=== PATIENT | male | born 1985 | race Caucasian/White ===

== ENCOUNTER 2016-08-02 19:37 | Emergency (ER) | payer OTHER ==
[2016-08-02] MEDS ORDERED: ACETAMINOPHEN 325 MG TABLET PO ONE (20:24)
--- NOTE | 2016-08-02 20:25 | ER Document Report ---
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 Patient denies any injury. Patient denies any paresthesia. Patient denies any urinary symptoms. hx: T4 fracture I have greeted and performed a rapid initial assessment of this patient. A comprehensive ED assessment and evaluation of the patient, analysis of test results and completion of the medical decision making process will be conducted by additional ED providers. TRAVEL OUTSIDE OF THE [place] IN LAST 30 DAYS: No - Related Data Allergies/Adverse Reactions: Penicillins Allergy (Unknown, Verified 08/02/16 20:22) Past Medical History - Immunizations Hx Diphtheria, Pertussis, Tetanus Vaccination: Yes Physical Exam - Back Back: Tender - Lower lumbar tenderness
[2016-08-03] MEDS ORDERED: HYDROCODONE/ACETAMINOPHEN 5-325 MG 6 TAB/DSPK PO PRN (00:37)
[2016-08-03] MEDS ORDERED: NAPROXEN 250 MG TABLET PO ONE (00:37)
[2016-08-03] MEDS ORDERED: LIDOCAINE 5% (700 MG) TRANSDERMAL ADH..PATCH TP ONE (00:37)
[2016-08-03] MEDS ORDERED: OXYCODONE HCL IR 5 MG TABLET PO ONE (00:38)
--- NOTE | 2016-08-03 00:39 | ER Document Report ---
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 States that the symptoms were gradual in onset and have gotten worse since they started. 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 He's been trying ibuprofen at home with minimal improvement of his pain. States any attempt at moving the back or walking worsens the pain. Denies any bowel or bladder incontinence. No urinary retention. He has not had any fever. No weakness or numbness. States that pain does intermittently shoot down his right leg if he moves his back certain way. Denies any history of similar symptoms in the past. He has not seen his primary care doctor regarding today' s concerns. TRAVEL OUTSIDE OF THE [place] IN LAST 30 DAYS: No - Related Data Allergies/Adverse Reactions: Penicillins Allergy (Unknown, Verified 08/02/16 20:22) Past Medical History - General Information source: Patient - Social History Smoking Status: Never Smoker Chew tobacco use (# tins/day): Yes Frequency of alcohol use: Occasional Drug Abuse: None Lives with: Spouse/Significant other Family History: Reviewed & Not Pertinent Renal/ Medical History: Denies: Hx Peritoneal Dialysis - Immunizations Hx Diphtheria, Pertussis, Tetanus Vaccination: Yes Review of Systems - Review of Systems Notes: Constitutional: Negative for fever. HENT: Negative for sore throat. Eyes: Negative for visual changes. Cardiovascular: Negative for chest pain. Respiratory: Negative for shortness of breath. Gastrointestinal: Negative for abdominal pain, vomiting or diarrhea. Genitourinary: Negative for dysuria. Musculoskeletal: Positive for back pain. Skin: Negative for rash. Neurological: Negative for headaches, weakness or numbness. 10 point ROS negative except as marked above and in HPI. Physical Exam - Vital signs Vitals: Temp Pulse Resp BP Pulse Ox 97.6 F 102 H 14 134/79 H 100 08/02/16 20:25 08/02/16 20:25 08/02/16 20:25 08/02/16 20:25 08/02/16 20:25 Interpretation: Normal Notes: PHYSICAL EXAMINATION: GENERAL: Sitting straight up in bed, appears uncomfortable but in no acute distress HEAD: Atraumatic, normocephalic. EYES: Pupils equal round and reactive to light, extraocular movements intact, sclera anicteric, conjunctiva are normal. ENT: nares patent, oropharynx clear without exudates. Moist mucous membranes. NECK: Normal range of motion, supple without lymphadenopathy LUNGS: Breath sounds clear to auscultation bilaterally and equal. No wheezes rales or rhonchi. HEART: Regular rate and rhythm without murmurs ABDOMEN: Soft, nontender, normoactive bowel sounds. No guarding, no rebound. No masses appreciated. Back: No midline spinal tenderness, step-offs or deformities EXTREMITIES: Normal range of motion, no pitting or edema. No cyanosis. Negative straight leg raise test bilaterally NEUROLOGICAL: 5 out of 5 strength both distally and proximally bilateral lower extremities. 2+ patellar reflexes bilaterally. No clonus. Sensation grossly intact in the bilateral lower extremities. Patient is able to ambulate without difficulty. PSYCH: Normal mood, normal affect. SKIN: Warm, Dry, normal turgor, no rashes or lesions noted. Course - Re-evaluation Re-evalutation: 08/03/16 00:38 Presentation of a well appearing patient complaining of acute back pain. No rapid progression of symptoms, systemic symptoms including fevers, chills, weight loss, history of recent bacterial infection, bilateral symptoms, numbness , weakness, difficulty walking, urinary retention or bowel incontinence, personal history of cancer, immunosuppression, diabetes, known AAA, or history of IV drug use. Exam is without point tenderness over vertebral bodies, pulsatile abdominal mass, and patient has symmetric and intact lower extremity strength, sensation, and reflexes without clonus. 2+ symmetric medial malleolar and dorsalis pedis pulses Based on history and physical, I have a very low suspicion of a concerning etiology of pain including epidural compression syndrome, spinal infection, transverse myelitis, malignancy, abdominal aortic aneurysm, renal colic, acute lower extremity claudication, neurogenic claudication, ankylosing spondylitis, or other intra-abdominal process. Due to absence of concerning risk factors in history and physical as well as absence of rapidly progressive, severe, or bilateral symptoms, will defer imaging at this point. Plan to manage conservatively with outpatient analgesia, analgesia, and physical therapy. - Acetaminophen 650 q 4 + ibuprofen 600 q 6 - Continue normal daily activities as tolerated by pain - Provide with standard musculoskeletal back pain exercise instructions - Instruct to follow up with primary care provider if symptoms not improving - Provide careful return precautions and concerning symptoms to watch for. - Vital Signs Vital signs: Temp Pulse Resp BP Pulse Ox 97.9 F 90 16 132/88 H 99 08/03/16 01:00 08/03/16 01:00 08/03/16 01:00 08/03/16 01:00 08/03/16 01:00 Discharge - Discharge Clinical Impression: Back pain Qualifiers: Back pain location: low back pain Chronicity: acute Back pain laterality: unspecified Sciatica presence: without sciatica Qualified Code(s): M54.5 - Low back pain Condition: Good Disposition: HOME, SELF-CARE Additional Instructions: You have been seen in the Emergency Department (ED) today for back pain. Your workup and exam have not shown any acute abnormalities and you are likely suffering from muscle strain or possible problems with your discs, but there is no treatment that will fix your symptoms at this time. Take ibuprofen 600mg every 6 hours. You should also purchase a local lidocaine cream such as "aspercreme with lidocaine" and use per bottle instructions to the affected area. Apply heat to the area as often as you are able. Continue to keep active and avoid prolonged periods of bed rest. Please follow up with your doctor as soon as possible regarding today's ED visit and your back pain. Return to the ED for worsening back pain, fever, weakness or numbness of either leg, or if you develop either (1) an inability to urinate or have bowel movements, or (2) loss of your ability to control your bathroom functions (if you start having "accidents"), or if you develop other new symptoms that concern you.concern you. Prescriptions: Oxycodone HCl/Acetaminophen [Percocet 5-325 mg Tablet] 1 - 2 tab PO Q4H PRN #15 tablet PRN Reason: Forms: Return to Work
[2016-08-03 01:19] VITALS: BP 132/88
== END 2016-08-03 01:19 | disposition home or self-care (01) ==
LOC: ER 19:37
DX: M54.5 Low back pain (principal); X50.0XXA Overexertion from strenuous movement or load, initial encounter; Y99.0 Civilian activity done for income or pay; Z88.0 Allergy status to penicillin; Z72.0 Tobacco use
CPT/HCPCS: 99283

== ENCOUNTER 2017-02-01 21:45 | Emergency (ER) | payer SELFPAY ==
[2017-02-01] MEDS ORDERED: KETOROLAC TROMETHAMINE INJ/PF 30 MG/1 ML SDV IV ONE (21:51)
[2017-02-01] MEDS ORDERED: LIDOCAINE 5% (700 MG) TRANSDERMAL ADH..PATCH TP ONE (21:51)
[2017-02-01] MEDS ORDERED: FENTANYL CITRATE INJ/PF 100 MCG/2 ML AMPUL IV ONE (21:52)
[2017-02-01 21:54] VITALS: BP 113/70
--- NOTE | 2017-02-01 21:56 | ER Document Report ---
ED General - General Stated Complaint: RIB PAIN Time Seen by Provider: 02/01/17 21:51 Notes: Patient is a 31-year-old male without past medical history who presents with acute onset of left lower rib pain after he actually ran into a gutter while playing soccer with friends. Reports an immediate onset of severe, stabbing pain to the area. Movement worsens the pain. Nothing improves the pain. He did have a rib injury approximately 3-4 months ago and believes he has reinjured himself. Notes some mild difficulty breathing secondary to pain. No hemoptysis. He has not seen his primary doctor regarding today's concerns. Denies any additional injuries. TRAVEL OUTSIDE OF THE [place] IN LAST 30 DAYS: No - Related Data Allergies/Adverse Reactions: Penicillins Allergy (Unknown, Verified 08/02/16 20:22) Past Medical History - General Information source: Patient - Social History Smoking Status: Never Smoker Frequency of alcohol use: None Drug Abuse: None Lives with: Spouse/Significant other Family History: Reviewed & Not Pertinent Renal/ Medical History: Denies: Hx Peritoneal Dialysis - Immunizations Hx Diphtheria, Pertussis, Tetanus Vaccination: Yes Review of Systems - Review of Systems Notes: Constitutional: Negative for fever. HENT: Negative for sore throat. Eyes: Negative for visual changes. Cardiovascular: Negative for chest pain. Respiratory: Negative for shortness of breath. Gastrointestinal: Negative for abdominal pain, vomiting or diarrhea. Genitourinary: Negative for dysuria. Musculoskeletal: Positive for left rib injury Skin: Negative for rash. Neurological: Negative for headaches, weakness or numbness. 10 point ROS negative except as marked above and in HPI. Physical Exam - Vital signs Vitals: Temp Pulse Resp BP Pulse Ox 97.9 F 105 H 18 113/70 100 02/01/17 21:51 02/01/17 21:51 02/01/17 21:51 02/01/17 21:51 02/01/17 21:51 Interpretation: Tachycardic Notes: PHYSICAL EXAMINATION: GENERAL: Appears uncomfortable but no acute distress HEAD: Atraumatic, normocephalic. EYES: Pupils equal round and reactive to light, extraocular movements intact, sclera anicteric, conjunctiva are normal. ENT: nares patent, oropharynx clear without exudates. Moist mucous membranes. NECK: Normal range of motion, supple without lymphadenopathy LUNGS: Breath sounds clear to auscultation bilaterally and equal. No wheezes rales or rhonchi. HEART: Regular rate and rhythm without murmurs ABDOMEN: Soft, nontender, normoactive bowel sounds. No guarding, no rebound. No masses appreciated. EXTREMITIES: Normal range of motion, no pitting or edema. No cyanosis. NEUROLOGICAL: No focal neurological deficits. Moves all extremities spontaneously and on command. PSYCH: Anxious t. SKIN: Warm, Dry, normal turgor, no rashes or lesions noted. Course - Re-evaluation Re-evalutation: 02/01/17 21:55 Patient presents after falling onto their ribs, complaining of focal pain to the affected area. No tachypnea or hypoxemia at time of arrival. Pain controlled here in the emergency department with narcotic and anti-inflammatory analgesics. Chest x-ray without evidence of acute fracture, pneumothorax or pulmonary contusion. At this time will discharge with return precautions and follow-up recommendations. Verbal discharge instructions given at the bedside and opportunity for questions given. Medication warnings reviewed. Patient is in agreement with this plan and has verbalized understanding of return precautions and the need for primary care follow-up in the next 24-72 hours. - Vital Signs Vital signs: Temp Pulse Resp BP Pulse Ox 97.9 F 105 H 18 113/70 100 02/01/17 21:51 02/01/17 21:51 02/01/17 21:51 02/01/17 21:51 02/01/17 21:51 - Diagnostic Test Radiology reviewed: Image reviewed, Reports reviewed Radiology results interpreted by me: 02/01/17 23:10 Chest x-ray: No acute rib fractures or pneumothoraces Discharge - Discharge Clinical Impression: Rib injury Condition: Good Disposition: HOME, SELF-CARE Additional Instructions: Your chest wall pain is due to bruising of your ribs. This pain can last for up to 6 weeks. It is very important that you continue to take purposeful deep breaths. For your pain: Continue to take ibuprofen 600 mg every 6 hours or Tylenol 1000 mg every 6 hours. Apply local lidocaine to the area per bottle instructions. There is a product sold [id number] called "Aspercreme with lidocaine" that you can use for this purpose. Please follow-up with her primary care doctor in the next 2-3 days. Return to the emergency department immediately if you develop worsening shortness of breath, increased pain, begin coughing blood, pass out, or have any other symptoms that are worrisome to you.
[2017-02-01] MEDS ORDERED: DIAZEPAM INJ 10 MG/2 ML DISP.SYRIN IV ONE (22:23)
--- NOTE | 2017-02-01 23:07 | RADIOLOGY REPORT (SQ) ---
EXAM DESCRIPTION: CHEST PA/LAT COMPLETED DATE/TIME: 02/01/2017 10:48 pm REASON FOR STUDY: left rib injury COMPARISON: None. EXAM PARAMETERS: NUMBER OF VIEWS: two views TECHNIQUE: Digital Frontal and Lateral radiographic views of the chest acquired. RADIATION DOSE: NA LIMITATIONS: none FINDINGS: LUNGS AND PLEURA: No opacities, masses or pneumothorax. No pleural effusion. MEDIASTINUM AND HILAR STRUCTURES: No masses or contour abnormalities. HEART AND VASCULAR STRUCTURES: Heart normal size. No evidence for failure. BONES: Old 6 left rib fracture. HARDWARE: None in the chest. OTHER: No other significant finding. IMPRESSION: NO SIGNIFICANT RADIOGRAPHIC FINDING IN THE CHEST. TECHNICAL DOCUMENTATION: JOB ID: [id number] [employer]- All Rights Reserved
== END 2017-02-01 23:29 | disposition home or self-care (01) ==
LOC: ER 21:45
DX: S29.8XXA Other specified injuries of thorax, initial encounter (principal); R07.81 Pleurodynia; W22.09XA Striking against other stationary object, initial encounter; Y93.66 Activity, soccer; Z88.0 Allergy status to penicillin
CPT/HCPCS: 99284; 96374; 96375; 71020; J3360; J3010; J1885

== ENCOUNTER 2017-05-04 10:56 | Emergency (ER) | payer SELFPAY ==
[2017-05-04] MEDS ORDERED: LIDOCAINE 5% (700 MG) TRANSDERMAL ADH..PATCH TP ONE (12:07)
[2017-05-04] MEDS ORDERED: KETOROLAC TROMETHAMINE INJ/PF 30 MG/1 ML SDV IV ONE (12:07)
[2017-05-04] MEDS ORDERED: DEXAMETHASONE SOD PHOS INJ 10 MG/1 ML VIAL IM ONE (12:07)
[2017-05-04] MEDS ORDERED: KETOROLAC TROMETHAMINE 60 MG/2 ML SDV IM ONE (12:13)
--- NOTE | 2017-05-04 12:13 | ER Document Report ---
ED Neck/Back Problem - General Chief Complaint: Back Pain Stated Complaint: BACK PAIN Time Seen by Provider: 05/04/17 11:23 Mode of Arrival: Ambulatory Information source: Patient Notes: 31-year-old male presents to ED for complaint of pain to his low back which is a chronic problem since he was 14 years old. TRAVEL OUTSIDE OF THE [place] IN LAST 30 DAYS: No - HPI Patient complains to provider of: Pain, Lower back Onset: Other - Betsy was 14 Onset: Chronic Timing: Still present Quality of pain: Sharp, Throbbing Pain Level: 4 Context: Bending, Turning Recent injury: No Associated symptoms: Like prior neck/back pain, Lower back pain. denies: Constipation, Incontinence, Motor loss, Numbness/tingling, Sensory loss, Sweaty , Unable to urinate Exacerbated by: Movement of trunk Relieved by: Nothing Similar symptoms previously: Yes Recently seen / treated by doctor: No - Related Data Allergies/Adverse Reactions: Penicillins Allergy (Unknown, Verified 05/04/17 10:59) Past Medical History - General Information source: Patient - Social History Smoking Status: Never Smoker Cigarette use (# per day): No Chew tobacco use (# tins/day): Yes Smoking Education Provided: No Frequency of alcohol use: 3 times a week Drug Abuse: Marijuana Lives with: Family Family History: Reviewed & Not Pertinent Patient has suicidal ideation: No Patient has homicidal ideation: No - Past Medical History Cardiac Medical History: Reports: None Pulmonary Medical History: Reports: None EENT Medical History: Reports: None Neurological Medical History: Reports: None Endocrine Medical History: Reports: None Renal/ Medical History: Reports: None Malignancy Medical History: Reports None GI Medical History: Reports: None Musculoskeltal Medical History: Reports Hx Arthritis, Reports Hx Musculoskeletal Deformity, Reports Hx Musculoskeletal Trauma Skin Medical History: Reports None Psychiatric Medical History: Reports: None Traumatic Medical History: Reports: None Infectious Medical History: Reports: None Surgical Hx: Negative Past Surgical History: Reports: None - Immunizations Hx Diphtheria, Pertussis, Tetanus Vaccination: Yes Review of Systems - Review of Systems Constitutional: No symptoms reported EENT: No symptoms reported Cardiovascular: No symptoms reported Respiratory: No symptoms reported Gastrointestinal: No symptoms reported Genitourinary: No symptoms reported Male Genitourinary: No symptoms reported Musculoskeletal: Back pain, Muscle pain, Muscle stiffness Skin: No symptoms reported Hematologic/Lymphatic: No symptoms reported Neurological/Psychological: No symptoms reported -: Yes All other systems reviewed and negative Physical Exam - Vital signs Vitals: Temp Pulse Resp BP Pulse Ox 98.6 F 71 18 129/66 H 100 05/04/17 10:59 05/04/17 10:59 05/04/17 10:59 05/04/17 10:59 05/04/17 10:59 Interpretation: Normal - General General appearance: Appears well, Alert - HEENT Head: Normocephalic, Atraumatic Eyes: Normal Pupils: PERRL - Respiratory Respiratory status: No respiratory distress Chest status: Nontender Breath sounds: Normal Chest palpation: Normal - Cardiovascular Rhythm: Regular Heart sounds: Normal auscultation Murmur: No - Abdominal Inspection: Normal Distension: No distension Bowel sounds: Normal Tenderness: Nontender Organomegaly: No organomegaly - Back Back: Normal, Tender, Vertebra tenderness - Lumbar area. No: Deformity/step-off , CVA tenderness, Scars, Scoliosis, Wounds - Extremities General upper extremity: Normal inspection, Nontender, Normal color, Normal ROM , Normal temperature General lower extremity: Normal inspection, Nontender, Normal color, Normal ROM , Normal temperature, Normal weight bearing. No: Laura's sign - Neurological Neuro grossly intact: Yes Cognition: Normal Orientation: AAOx4 [employer] Coma Scale Eye Opening: Spontaneous [employer] Coma Scale Verbal: Oriented [place] Coma Scale Motor: Obeys Commands [place] Coma Scale Total: 15 Speech: Normal Motor strength normal: LUE, RUE, LLE, RLE Sensory: Normal - Psychological Associated symptoms: Normal affect, Normal mood - Skin Skin Temperature: Warm Skin Moisture: Dry Skin Color: Normal Course - Re-evaluation Re-evalutation: 05/04/17 19:45 Patient denies any signs and symptoms of cauda equina. He denies any saddle anesthesia, loss control of bowel bladder, loss of sensation to the legs, or loss of control of the legs patient was treated with Toradol and Decadron and Lidoderm patch in the emergency room discharged home with prescription for ibuprofen and the name and number for who is a back specialist and the [facility]. Patient instructed to give follow-up care for his chronic pain. - Vital Signs Vital signs: Temp Pulse Resp BP Pulse Ox 98.4 F 86 15 139/88 H 99 05/04/17 12:39 05/04/17 12:39 05/04/17 12:39 05/04/17 12:39 05/04/17 12:39 Discharge - Discharge Clinical Impression: Chronic back pain greater than 3 months duration Condition: Stable Disposition: HOME, SELF-CARE Instructions: Family Physicians / Practices Additional Instructions: LOW BACK PAIN: Three out of every four people will have an episode of disabling back pain during their lifetime. Most commonly the pain is due to straining of the muscles and ligaments in the low back. Usual treatment includes: (1) Rest on a firm surface. Avoid lying on your stomach. (2) Ice pack the painful area. After a few days, gentle heat may be used intermittently to relax the area, or ice packs can be continued. (3) Medication may be needed -- muscle relaxers and antiinflammatory medicines are commonly used. (4) As the back improves, exercises are prescribed to strengthen the back and abdominal muscles. Your doctor will advise you on the proper care for your back at each stage in your recovery. You may be better in a few days -- or healing may take several weeks. If new symptoms of a "herniated disc" (radiation of pain, numbness, or tingling down the back of the leg or weakness in the leg) occur, you should be re-examined. Further testing may be necessary. Chronic Pain Control Stress, inactivity, and depression make pain more severe regardless of the cause of the pain. Stress and poor physical condition can cause pain such as headaches and backache. Relaxation: Rest in a quiet place with your eyes closed for 20 minutes twice daily. Concentrate on a pleasant image, or simply "feel" your breathing. Clear your mind. Stress management: Deal with your "stressors." Either take action, or eliminate the stressor from your life. Don't let things hang over you. Accept those things you can't change. Nutrition: Eat small, balanced meals -- don't skip, don't overeat. Meals should be high-carbohydrate, low-sugar, low-fat. Exercise: Exercise helps painful conditions and eases stress. Get 30 minutes of moderate exercise, five days a week. Do an activity that does not flare your pain. Precautions: Pain which continues to disrupt daily activities, or which changes in nature, requires a medical evaluation. Pain Clinic referral is available. We do not manage chronic pain in the Emergency Department. We will try to appropriately help you through an acute flare of your chronic painful condition , but for on-going chronic pain that does not improve, you will need to see your private doctor or appliance painter and refinisher. We do not provide repeated medication management of chronic painful conditions. If you wish, we can provide the name of local pain management physicians. Chronic Back Pain Chronic back pain (pain persisting longer than three months) is a common problem. A medical evaluation can look for herniated disc, arthritis, osteoporosis, tumors, and infections. But at least half the time, there's no obvious treatable cause. Anxiety and depression tend to worsen back pain. Ibuprofen or other anti-inflammatory medicine can help. A heating pad, used for 15-20 minutes at a time, can ease pain. For this type of back pain, narcotic medicines should be avoided. Muscle relaxers are rarely helpful unless you're having spasms. Activity is important. Find an aerobic exercise program that your back can tolerate. Too much rest makes back pain worse. Specific back exercises are usually prescribed to strengthen the back and abdominal muscles. Often, a physical therapist can help. Avoid heavy lifting, working while bent over, or standing with both knees straight. Most back pain patients do better with a firm mattress. If new symptoms of a "herniated disc" (radiation of pain, numbness, or tingling down the back of the leg or weakness in the leg) occur, you should be re-examined. Stretching Exercises for the Back The physician has recommended that you begin stretching exercises for your back. These are often used even while the back is painful. However, you should notify the physician if the activities seem to increase your pain. PELVIC TILT: Lie flat on your back with knees bent. Tighten your stomach and buttock muscles so it flattens your lower back against the floor. Hold 10 seconds. Repeat 10 times, twice daily. KNEE RAISE: Lying on the back with knees bent, raise one knee to your chest, then the other. Hold both knees against the chest 10 seconds, then lower one knee at a time. Repeat 10 times, twice daily. PARTIAL TRUNK RAISE: Lie face down, arms at your sides. Keeping your waist on the floor, use your arms raise your chest up. Support yourself on your elbows for 30 seconds. Repeat twice daily, increasing the time to two minutes as you recover. ICE PACKS: Apply ice packs frequently against the painful area. Many different schedules are recommended, such as "20 minutes on, 20 minutes off" or "one hour ice, two hours rest." If you need to work, you may need to go longer between ice treatments. You should plan to have the area ice packed AT LEAST one fourth of the time. The ice should be applied over the wrap, tape, or splint, or over a layer of cloth -- not directly against the skin. Some ice bags have a built-in cloth and can be put directly on the skin. WARM PACKS: After approximately two days, apply gentle heat (such as a heating pad or hot water bottle) for about 20 to 30 minutes about every two hours -- at least four times daily. Warmth and elevation will help you make a more rapid recovery , and will ease the pain considerably. Do not use HOT heat, and never apply heat for longer than 30 minutes. The continuous heat can invisibly damage skin and muscles -- even when no burn is seen on the surface. Damaged muscles can make you MORE sore. FOLLOW-UP CARE: If you have been referred to a physician for follow-up care, call the physician s office for an appointment as you were instructed or within the next two days. If you experience worsening or a significant change in your symptoms, notify the physician immediately or return to the Emergency Department at any time for re-evaluation. Prescriptions: Ibuprofen 600 mg PO Q8HP PRN #20 tablet PRN Reason: Forms: Smoking Cessation Education, Return to Work Referrals: CAM PORTILLO MD [ASSOCIATE] - Follow up as needed [facility] [Provider Group] - Follow up as needed
[2017-05-04 12:42] VITALS: BP 139/88
== END 2017-05-04 12:39 | disposition home or self-care (01) ==
LOC: ER 10:56
DX: M54.9 Dorsalgia, unspecified (principal); M54.5 Low back pain; G89.29 Other chronic pain
CPT/HCPCS: 99283; 96372; J1885; J1100

== ENCOUNTER 2018-05-09 14:14 | Emergency (ER) | payer SELFPAY ==
[2018-05-09 14:48] VITALS: BP 124/79
[2018-05-09] MEDS ORDERED: OXYCODONE-ACETAMINOPHEN 5-325 MG TABLET PO ONE (15:05)
--- NOTE | 2018-05-09 15:10 | ER Document Report ---
ED Hand/Wrist Injury - General Chief Complaint: Hand Pain Stated Complaint: RIGHT HAND/FINGER PAIN Time Seen by Provider: 05/09/18 15:00 TRAVEL OUTSIDE OF THE [place] IN LAST 30 DAYS: No - HPI Notes: Patient is a 33-year-old male that presents to the emergency department for chief complaint of right hand pain. Patient states yesterday while walking on the stairs he tripped over his dog. He then reached forward and got his hand stuck between the railings of the steps resulting in a twisting mechanism. Since then he has had increased swelling and pain over the lateral aspect of his right hand and right fifth digit. He tried OTC medications at home with no relief of his pain. He does report some paresthesias in the right fifth digit. He states he is having a difficult time moving his right fifth digit because of pain. Patient denies any head injury or other injuries during Past Medical History: Negative Past Surgical History: Negative Social History: Chewing tobacco. Denies drugs and alcohol Family History: Reviewed and noncontributory for presenting illness Allergies: Reviewed, see documented allergy list. REVIEW OF SYSTEMS: CONSTITUTIONAL : No fever No chills No diaphoresis No recent illness EENT: No vision changes No congestion No sore throat CARDIOVASCULAR: No chest pain No palpitations RESPIRATORY: No shortness of breath No cough No difficulty breathing GASTROINTESTINAL: No abdominal pain No nausea No vomiting No diarrhea GENITOURINARY: No dysuria No hematuria No difficulty urinating MUSCULOSKELETAL: No back pain No leg pain Right hand pain SKIN: No rashes No lesions LYMPHATIC: No swollen, enlarged glands. NEUROLOGICAL: No lightheadedness No headache No weakness No paresthesias PSYCHIATRIC: No anxiety No depression PHYSICAL EXAMINATION: Vital signs reviewed, nursing noted reviewed. GENERAL: Well-appearing, well-nourished and in no acute distress. HEAD: Atraumatic, normocephalic. EYES: Eyes appear normal, extraocular movements intact, sclera anicteric, conjunctiva are normal. ENT: nares patent, oropharynx clear without exudates. Moist mucous membranes. NECK: Normal range of motion, supple without lymphadenopathy LUNGS: Breath sounds clear to auscultation bilaterally and equal. No wheezes rales or rhonchi. HEART: Regular rate and rhythm without murmurs ABDOMEN: Soft, nontender, normoactive bowel sounds. No rebound, guarding, or rigidity. No masses appreciated. EXTREMITIES: Ecchymosis and swelling to lateral right hand with flexion deformity of right fifth digit which is diffusely tender. Tenderness to palpation of right fifth metacarpal with no deformity. Normal right wrist with no bony tenderness or deformity NEUROLOGICAL: No focal neurological deficits. Moves all extremities spontaneously Motor and sensory grossly intact on exam. PSYCH: Normal mood, normal affect. SKIN: Warm, Dry, normal turgor, no rashes or lesions noted on exposed skin - Related Data Allergies/Adverse Reactions: Penicillins Allergy (Unknown, Verified 05/04/17 10:59) Past Medical History - Social History Smoking Status: Never Smoker Chew tobacco use (# tins/day): Yes Frequency of alcohol use: Occasional Drug Abuse: None Family History: Reviewed & Not Pertinent Patient has suicidal ideation: No Patient has homicidal ideation: No Renal/ Medical History: Denies: Hx Peritoneal Dialysis Musculoskeletal Medical History: Reports Hx Arthritis, Reports Hx Musculoskeletal Deformity, Reports Hx Musculoskeletal Trauma - Immunizations Hx Diphtheria, Pertussis, Tetanus Vaccination: Yes Physical Exam - Vital signs Vitals: Temp Pulse Resp BP Pulse Ox 98.5 F 92 16 124/79 98 05/09/18 14:47 05/09/18 14:47 05/09/18 14:47 05/09/18 14:47 05/09/18 14:47 Course - Re-evaluation Re-evalutation: 05/09/18 15:09 Vitals reviewed. Nursing notes reviewed. Patient given Percocet for pain. He has significant ecchymosis and swelling over the right hand and fifth digit. X- ray obtained to evaluate for fracture. 05/09/18 15:37 X-ray shows displaced left fifth digit fracture. Patient's fracture will be reduced using digital block. See procedure note. 05/09/18 16:11 Fracture reduction was performed with no immediate complications. Patient tolerated well. There is improvement in fracture alignment. He will be placed in a finger splint and referred to orthopedics for follow-up. Patient given Percocet for pain. Discharged home in stable condition. - Vital Signs Vital signs: Temp Pulse Resp BP Pulse Ox 98.5 F 92 16 124/79 98 05/09/18 14:47 05/09/18 14:47 05/09/18 14:47 05/09/18 14:47 05/09/18 14:47 - Diagnostic Test Radiology reviewed: Image reviewed Procedures - Joint Reduction/Fracture Care Right Finger Time completed: 15:57 Consent obtained: Yes Conscious sedation: No Pre-procedure NV exam: Yes - Normal Fracture: Closed Post-procedure NV exam: Yes - Normal Reduction attempts: 1 Complications: No Notes: 05/09/18 15:58 Lidocaine 1%, 3 mL, injected into right digit for digital block. Good anesthesia achieved. Direct traction on the fracture for fracture reduction was performed. Patient's finger was straightened with good alignment. Repeat x -ray obtained postreduction. Patient tolerated well with no immediate complications. Discharge - Discharge Clinical Impression: Finger fracture, right Qualifiers: Encounter type: initial encounter Finger: little finger Fracture type: closed Phalanx: proximal Fracture alignment: displaced Qualified Code(s): S62.616A - Displaced fracture of proximal phalanx of right little finger, initial encounter for closed fracture Condition: Stable Disposition: HOME, SELF-CARE Instructions: Fractured Finger ([facility]) Additional Instructions: Please return to the emergency department if you have any worsening, or concern of your symptoms. Please return to the emergency department if you develop chest pain, difficulty breathing, severe abdominal pain, or ongoing vomiting. Please follow-up with your primary care physician in 2-3 days and any other recommended physicians. If prescribed, take all medications as directed. If you have any questions or concerns do not hesitate to return the emergency department for evaluation. [] Prescriptions: Hydrocodone/Acetaminophen [[place] 5-325 mg Tablet] 1 tab PO Q6 PRN #10 tablet PRN Reason: Pain Referrals: JUANPABLO HERNANDEZ MD [ACTIVE STAFF] - Follow up in 3-5 days
[2018-05-09] MEDS ORDERED: LIDOCAINE 1% INJ (10 MG/ML) 10 ML MDV INJ ONE (15:37)
--- NOTE | 2018-05-09 16:15 | RADIOLOGY REPORT (SQ) ---
EXAM DESCRIPTION: HAND RIGHT 3 VIEWS COMPLETED DATE/TIME: 05/09/2018 3:38 pm REASON FOR STUDY: 5th digit trauma COMPARISON: None. EXAM PARAMETERS: NUMBER OF VIEWS: Three views. TECHNIQUE: AP, lateral and oblique radiographic images acquired of the right hand. LIMITATIONS: None. FINDINGS: MINERALIZATION: Normal. BONES: Slightly displaced fracture base of the proximal phalanx, fifth digit. JOINTS: No effusions. SOFT TISSUES: Soft tissue swelling fifth digit. OTHER: No other significant finding. IMPRESSION: 1. Slightly displaced proximal phalanx fracture, fifth digit. COMMENT: 1. The results of this examination were discussed with emergency room provider on 05/09/20 18 at 16:07 hours. TECHNICAL DOCUMENTATION: JOB ID: [id number] [employer]- All Rights Reserved Reading location - IP/workstation name: [email or web address]
--- NOTE | 2018-05-09 16:49 | RADIOLOGY REPORT (SQ) ---
EXAM DESCRIPTION: FINGER RIGHT COMPLETED DATE/TIME: 05/09/2018 4:16 pm REASON FOR STUDY: post reduction COMPARISON: None. NUMBER OF VIEWS: Three views. TECHNIQUE: AP, lateral, and oblique images acquired of the fifth digit of the right hand. LIMITATIONS: None. FINDINGS: MINERALIZATION: Normal. BONES: Slightly displaced, slightly comminuted fracture proximal phalanx of the fifth digit. SOFT TISSUES: No soft tissue swelling. No foreign body. OTHER: No other significant finding. IMPRESSION: 1. Slightly displaced, slightly comminuted fracture proximal phalanx, fifth digit. COMMENT: SITE OF TRAUMA/COMPLAINT MARKED/STAMP COMPLETED: YES. TECHNICAL DOCUMENTATION: JOB ID: [id number] [employer]- All Rights Reserved Reading location - IP/workstation name: [email or web address]
== END 2018-05-09 16:45 | disposition home or self-care (01) ==
LOC: ER 14:14
DX: S62.616A Displaced fracture of proximal phalanx of right little finger, initial encounter for closed fracture (principal); W23.1XXA Caught, crushed, jammed, or pinched between stationary objects, initial encounter; Y93.K1 Activity, walking an animal; R20.2 Paresthesia of skin; Z72.0 Tobacco use; Z88.0 Allergy status to penicillin
CPT/HCPCS: 99283